=== PATIENT | female | born 1995 | race Caucasian/White ===

== ENCOUNTER 2019-01-20 01:59 | Emergency (ER) | payer OTHER ==
--- NOTE | 2019-01-20 03:29 | EDPHY ---
H & P Stated Complaint: R big toe lac, hit on escalator, controlled with pressure Time Seen by Provider: 01/20/19 03:29 HPI/ROS: HPI CHIEF COMPLAINT: Right great toe laceration. HISTORY OF PRESENT ILLNESS: Patient very pleasant 23-year-old female, [employer] student, she just flew back from [facility] [employer]. Landing at [place] around midnight. 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 She caught her toe on this tar heat exchanger cleaner cutting the bottom of the right great toe. It is L-shaped laceration approximately 1 cm x 1 cm. Not gaping and not open. She reports her tetanus shot is up-to-date. Denies any significant other areas of trauma. Past Medical History: No significant medical history Past Surgical History: No significant surgical history Social History: Lives locally, [employer] student. Tetanus shot up -to-date. Denies drugs alcohol tobacco. Family History:non contributory. ROS REVIEW OF SYSTEMS: 10 Systems were reviewed and negative with the exception of the elements mentioned in the history of present illness. Exam Constitutional triage nursing summary reviewed, vital signs reviewed, awake/ alert. Eyes normal conjunctivae and sclera, EOMI, PERRLA. HENT normal inspection, atraumatic, moist mucus membranes, no epistaxis, neck supple/ no meningismus, no raccoon eyes. Respiratory clear to auscultation bilaterally, normal breath sounds, no respiratory distress, no wheezing. Cardiovascular rate normal, regular rhythm, no murmur, no edema, distal pulses normal. Gastrointestinal soft, non-tender, no rebound, no guarding, normal bowel sounds, no distension, no pulsatile mass. Genitourinary no CVA tenderness. Musculoskeletal no midline vertebral tenderness, full range of motion, no calf swelling, no tenderness of extremities, no meningismus, good pulses, neurovascularly intact. Skin right great toe: Bottom of it shows L-shaped laceration not gaping and not open 1 cm x 1 cm. No foreign body visualized. Neurologic awake, alert and oriented x 3, AAOx3, moves all 4 extremities equally, motor intact, sensory intact, CN II-XII intact, normal cerebellar, normal vision, normal speech. Psychiatric normal mood/affect. Heme/Lymph/Immune no lymphadenopathy. Differential Diagnosis: Plan for this patient x-ray right foot, make sure her great toe is not fractured or foreign body. Clean her wound. I believe her wound is amendable to Dermabond. Placed on walking boot for protection and comfort. Patient understands watch the area closely for infection. Return emergency room if worsening symptoms. Medical Decision Making: Plan for this patient walking boot, clean wound, Dermabond. Dressing. X-ray. Re-evaluation: X-ray of the right foot reviewed negative for acute fracture foreign body visualized. Toe laceration was amendable to glue. Walking boot applied. Recommend gentle cleaning, watch for infection. Return to er if worsening symptoms, signs of infection. Source: Patient - Personal History LMP (Females 10-55): 15-21 Days Ago Current Tetanus Diphtheria and Acellular Pertussis (TDAP): Yes - Medical/Surgical History Hx Asthma: No Hx Chronic Respiratory Disease: No Hx Diabetes: No Hx Cardiac Disease: No Hx Renal Disease: No Hx Cirrhosis: No Hx Alcoholism: No Hx HIV/AIDS: No Hx Splenectomy or Spleen Trauma: No Other PMH: Denies - Social History Smoking Status: Never smoked Constitutional: Initial Vital Signs Temperature (C) 37.0 C 01/20/19 02:06 Heart Rate 79 01/20/19 02:06 Respiratory Rate 17 01/20/19 02:06 Blood Pressure 129/67 H 01/20/19 02:06 O2 Sat (%) 95 01/20/19 02:06 O2 Delivery Mode Room Air Allergies/Adverse Reactions: No Known Allergies Allergy (Unverified 01/20/19 02:06) Home Medications: Medication Instructions Recorded Penicillin V Potassium [Pen Vk] 500 mg PO Q6 10 Days tab 05/22/15 methylPREDNISolone [Medrol Dose 4 mg PO DAILY #1 ea 05/22/15 Luis E] Departure - Departure Disposition: Home, Routine, Self-Care Clinical Impression: Laceration Condition: Good Instructions: Laceration (ED) Additional Instructions: 1. Watch for signs of infection this includes redness, drainage, swelling, increasing pain. 2. Walking boot for protection and comfort. 3. Keep the area clean. Referrals: NONE *PRIMARY CARE P,. [Primary Care Provider] - As per Instructions
[2019-01-20 05:00] VITALS: BP 130/75
== END 2019-01-20 04:59 | disposition home or self-care (01) ==
PROC: 0HQMXZZ Repair Right Foot Skin, External Approach (ICD-10-PCS; principal; 2019-01-20)
DX: S91.111A Laceration without foreign body of right great toe without damage to nail, initial encounter (principal); W24.0XXA Contact with lifting devices, not elsewhere classified, initial encounter; Y93.01 Activity, walking, marching and hiking; Y92.520 Airport as the place of occurrence of the external cause